=== PATIENT | female | born 1990 | race African-American/Black ===

== ENCOUNTER 2016-07-23 12:15 | Outpatient (CLI) | payer MEDICAID ==
[~2016-07-23] VITALS: Ht 157.5 cm; Wt 74.4 kg
[2016-07-23 12:25] VITALS: BP 113/64
== END 2016-07-23 13:43 | disposition home or self-care (01) ==
LOC: LDOP 12:15
PROVIDERS: ATTEND Obstetrics & Gynecology
DX: O26.893 Other specified pregnancy related conditions, third trimester (principal); M25.551 Pain in right hip; W19.XXXA Unspecified fall, initial encounter; Z3A.33 33 weeks gestation of pregnancy
CPT/HCPCS: 59025; 99211; G0463

== ENCOUNTER 2016-09-01 23:17 | Inpatient (IN) | payer MEDICAID ==
[~2016-09-01] VITALS: Ht 157.5 cm; Wt 78.2 kg
[2016-09-01] MEDS ORDERED: D5%-LACTATED RINGERS 1,000 ML IV SCH (23:58)
[2016-09-01] MEDS ORDERED: OXYTOCIN 30U/ 0.9% NaCL 500ML 500 ML IV ONE (23:58)
[2016-09-01] MEDS ORDERED: LACTATED RINGERS 1,000 ML IV SCH (23:58)
[2016-09-02] MEDS ORDERED: FENTANYL PF 100 MCG/2ML IV PRN
[2016-09-02] MEDS ORDERED: TERBUTALINE 1 MG/ML, 1ML SQ PRN
[2016-09-02] MEDS ORDERED: TERBUTALINE 1 MG/ML, 1ML IVPush PRN ×2
[2016-09-02] MEDS ORDERED: ONDANSETRON 2MG/ML, 2ML IVPush PRN
[2016-09-02 00:06] VITALS: BP 126/73
[2016-09-02] MEDS: PLEASE ENTER ALLERGIES MC SCH ×6 (00:30→16:30)
[2016-09-02] MEDS ORDERED: NEWBORN KIT ONE (00:33)
[2016-09-02] MEDS ORDERED: ONDANSETRON 2MG/ML, 2ML ONE (01:27)
[2016-09-02] MEDS ORDERED: FENTANYL PF 100 MCG/2ML ONE ×3 (01:36→05:42)
[2016-09-02] MEDS: FENTANYL PF 100 MCG/2ML IVPush PRN ×3 (01:38→05:44)
[2016-09-02] MEDS ORDERED: OXYTOCIN 30U/ 0.9% NaCL 500ML 500 ML ONE ×2 (04:54→09:49)
[2016-09-02] MEDS ORDERED: LIDOCAINE 1%, 20ML ONE ×2 (07:38→08:05)
[2016-09-02] MEDS ORDERED: MISOPROSTOL 200 MCG TABLET ONE (07:38)
[2016-09-02] MEDS ORDERED: ACETAMINOPHEN 325 MG TABLET PO PRN ×2 (08:00)
[2016-09-02] MEDS ORDERED: METOCLOPRAMIDE 5 MG/ML, 2ML IV PRN (08:00)
[2016-09-02] MEDS ORDERED: DOCUSATE 100 MG CAPSULE PO PRN (08:00)
[2016-09-02] MEDS ORDERED: CALCIUM CARBONATE 500 MG TAB.CHEW PO PRN ×2 (08:00)
[2016-09-02] MEDS ORDERED: ONDANSETRON 2MG/ML, 2ML IV PRN (08:00)
[2016-09-02] MEDS ORDERED: HYDROcodone/APAP 5/325 TABLET PO PRN ×2 (08:00)
[2016-09-02] MEDS: PRENATAL VIT/IRON/FA 1 EACH TABLET PO SCH (09:00)
[2016-09-02] MEDS ORDERED: IBUPROFEN 600 MG TABLET ONE (09:49)
[2016-09-02] MEDS: IBUPROFEN 600 MG TABLET PO PRN (09:53)
[2016-09-02] MEDS: OXYTOCIN 30U/ 0.9% NaCL 500ML 500 ML IV SCH ×2 (09:54→18:00)
[2016-09-02 10:30] VITALS: BP 105/60
[2016-09-02 11:30] VITALS: BP 103/54
[2016-09-02 16:00] VITALS: BP 108/62
[2016-09-02 20:15] VITALS: BP 94/50
[2016-09-03 00:20] VITALS: BP 103/57
[2016-09-03] MEDS: PLEASE ENTER ALLERGIES MC SCH ×2 (00:30)
[2016-09-03] MEDS: OXYTOCIN 30U/ 0.9% NaCL 500ML 500 ML IV SCH (02:50)
[2016-09-03 07:00] VITALS: BP 98/64
[2016-09-03] MEDS ORDERED: IBUP800T PO (07:34)
[2016-09-03] MEDS ORDERED: HYDR-3240 PO (07:37)
[2016-09-03] MEDS: IBUPROFEN 600 MG TABLET PO PRN (08:25)
[2016-09-03] MEDS: PRENATAL VIT/IRON/FA 1 EACH TABLET PO SCH (08:25)
== END 2016-09-03 18:00 | disposition home or self-care (01) | DRG 775 ==
LOC: LDOP 23:17 → LDIP 23:41 → 2NW 09-02 10:15
PROVIDERS: ADMIT Obstetrics & Gynecology; ATTEND Obstetrics & Gynecology
PROC: 10E0XZZ Delivery of Products of Conception, External Approach (ICD-10-PCS; principal; 2016-09-02)
PROC: 0KQM0ZZ Repair Perineum Muscle, Open Approach (ICD-10-PCS; 2016-09-02)
PROC: 3E033VJ Introduction of Other Hormone into Peripheral Vein, Percutaneous Approach (ICD-10-PCS; 2016-09-02)
DX: O99.52 Diseases of the respiratory system complicating childbirth (principal); Z37.0 Single live birth; O70.1 Second degree perineal laceration during delivery; Z3A.39 39 weeks gestation of pregnancy; J45.909 Unspecified asthma, uncomplicated; O32.6XX0 Maternal care for compound presentation, not applicable or unspecified; O99.334 Smoking (tobacco) complicating childbirth
CPT/HCPCS: 36415; 85025; 86850; 86900; J2405; J3010; J2590; J7120; J7121